=== PATIENT | female | born 1950 | race Caucasian/White ===

== ENCOUNTER 2025-06-28 15:25 | Emergency (ER) | payer MEDICARE ==
[2025-06-28] MEDS ORDERED: Benzonatate 100 MG CAP ONE (16:58)
[2025-06-28] MEDS ORDERED: Dexamethasone 10 MG/ML VIAL ONE (16:58)
[2025-06-28 18:08] LABS: #Basophils 0.08 10x3/uL (0.0-0.2); #Eosinophils 0.24 10x3/uL (0.0-0.7); #Monocytes 0.83 10x3/uL (0.11-0.59); #Neutrophils 3.62 10x3/uL (1.40-6.50); %Basophils 0.8 % (0.0-1.0); %Eosinophils 2.5 % (0.0-10.0); %Lymphocytes 48.8 % (21.0-51.0); %Monocytes 8.8 % (0.0-10.0); %Neutrophils 38.4 % (42.0-75.0); Hematocrit 40.6 % (36.0-47.0); Hemoglobin 13.0 g/dL (12.0-16.0); Mean Corpuscular Hemoglobin 29.7 pg (27.0-31.0); Mean Corpuscular Volume 92.9 fL (78.0-98.0); Platelet Count 200 10x3/uL (130-400); Red Blood Cell (RBC) Count 4.37 mill/uL (4.20-5.40); White Blood Cell (WBC) Count 9.45 10x3/uL (4.8-10.8)
[2025-06-28 18:32] LABS: ALT (SGPT) 19 U/L (Less than 34); AST (SGOT) 41 U/L (11-34); Albumin 4.1 g/dL (3.1-4.5); Alkaline Phosphatase 77 U/L (40-110); Anion Gap 13 mmol/L (10-20); BUN (Urea Nitrogen) 14 mg/dL (9.8-20.1); Bilirubin, Total 0.3 mg/dL (0.3-1.2); Calc. Creatinine Clearance 0 mL/min (70-130); Calcium 9.2 mg/dL (7.8-10.44); Carbon Dioxide 28 mmol/L (23-31); Chloride 105 mmol/L (98-107); Globulin 3.7 g/dL (2.4-3.5); Glucose 94 mg/dL (83-110); Potassium 5.2 mmol/L (3.5-5.1); Sodium 141 mmol/L (136-145)
[2025-06-28] MEDS ORDERED: Furosemide 20 MG (2 mL) VIAL ONE (19:28)
== END 2025-06-28 19:39 | disposition left against medical advice (07) ==
LOC: ERS 15:25
DX: J02.9 Acute pharyngitis, unspecified (principal); B37.0 Candidal stomatitis; I11.0 Hypertensive heart disease with heart failure; I50.9 Heart failure, unspecified; F17.210 Nicotine dependence, cigarettes, uncomplicated
CPT/HCPCS: 71045; 80053; 83880; 84484; 85025; 93005; J1100; J1940; J2060; 96374; 96375